=== PATIENT | female | born 1990 | race African-American/Black ===

== ENCOUNTER 2020-10-30 13:25 | Emergency (ER) | payer BC, OTHER, SELFPAY ==
[2020-10-30 13:32] VITALS: BP 151/92; PULSE 97; RESP 16; TEMP 36.9; O2SAT 100
[2020-10-30 14:15] LABS: Basophils Percent Auto 0.4 % (0.2-1.2); Eosinophils Absolute Auto 0.2 K/mm3 (0-0.3); Immature Granulocyte Absolute 0.02 K/mm3 (0.00-0.031); Immature Granulocyte Percent A 0.4 % (0-0.5); Lymphocytes Absolute Auto 2.41 K/mm3 (0.9-3.2); Lymphocytes Percent Auto 42.6 % (18.3-44.2); Mean Corpuscular HGB Conc 32.3 g/dl (32-36); Mean Corpuscular Hemoglobin 27.5 pg (26-34); Mean Corpuscular Volume 85.4 fl (80-100); Mean Platelet Volume 11.6 fl (7.4-10.4); Monocytes Absolute Auto 0.5 K/mm3 (0.1-0.6); Monocytes Percent Auto 8.5 % (2.6-8.5); Neutrophils Absolute Auto 2.6 K/mm3 (1.3-6.7); Neutrophils Percent Auto 45.1 % (45.5-73.1); Platelet Count Result 228 k/mm3 (150-375); Red Blood Count 3.63 M/mm3 (4.2-5.4); Red Cell Distribution Width 15.1 % (11.5-14.5); White Blood Count 5.7 K/mm3 (4.5-10.0)
--- NOTE | 2020-10-30 14:17 | ED.FEMALEGU ---
HPI - Female Genitourinary General Chief complaint: Vaginal Bleeding Stated complaint: vaginal bleeding Time Seen by Provider: 10/30/20 13:38 Source: patient and RN notes reviewed Mode of arrival: ambulatory Limitations: no limitations History of Present Illness HPI Narrative: This is a 30 year old female who presents for evaluation of heavy vaginal bleeding. Patient reports she gave to twins August 06 2020. She initially was only have small amount of vaginal spotting. She developed vaginal bleeding similar to regular menstrual cycle 6 days ago. Last night, she reports her bleeding became heavy and she has been passing clots. This morning she has used 8 pads since 2 am this morning and she states she used 6 pads over the past hour. She reports mild lightheadedness and lower abdominal cramping. She denies fever or chills. She is not . Related Data Allergies Allergy/AdvReac Type Severity Reaction Status Date / Time amoxicillin Allergy Rash Verified 10/30/20 13:47 tramadol Allergy Rash Verified 10/30/20 13:47 Review of Systems Review of Systems: All systems reviewed & are unremarkable except as noted in HPI and below PMFSH Past Medical History Medical History (Updated 10/30/20 @ 15:16 by Dania Hill MD) Asthma Surgical History Surgical History (Updated 10/30/20 @ 14:20 by Dania Hill MD) H/O section Social History Social History (Updated 10/30/20 @ 14:20 by Dania Hill MD) Smoking status: Never smoker Exam Const: General: no acute distress and alert Orientation/consciousness: patient oriented x3 Eyes: EOM: EOMs intact bilaterally Resp: Effort & Inspection: normal respiratory effort and no retractions Auscultation: clear to auscultation bilaterally Cardio: Rate: regular rate Rhythm: regular rhythm Heart sounds: no murmurs GI: GI Palp: Yes Soft to palpation, No Tenderness to palpation present (GI) and No Guarding due to palpation present (GI) Auscultation: normal bowel sounds : Speculum Exam - Cervix: normal appearance of the cervix and Cervical os closed Other: mild bright red blood in vaginal vault, no clots Neuro: General: patient oriented x3, moves all extremities and CN's II-XI intact bilaterally Course Reevaluation(s) Reevaluation #1: PAtient states her bleeding was manager surgical when she went to the restroom. Date: 10/30/20 Time: 14:21 Reevaluation #2: Patient states her bleeding is still minimal. I discussed hemoglobin of 10. She is not orthostatic and does not require transfusion. This appears to be start of her first menstrual cycle since her delivery. She will follow up with training and development professional as needed. Date: 10/30/20 Time: 15:10 Vital Signs Vital signs: Vital Signs Temperature 98.4 F 10/30/20 13:32 Pulse Rate 97 10/30/20 13:32 Respiratory Rate 16 10/30/20 13:32 Blood Pressure 151/92 H 10/30/20 13:32 Pulse Oximetry 100 10/30/20 13:32 Temperature 98.4 F 10/30/20 13:32 Pulse Rate 90 10/30/20 14:28 Respiratory Rate 16 10/30/20 13:32 Blood Pressure 117/91 H 10/30/20 14:28 Pulse Oximetry 100 10/30/20 13:32 MDM - Female Genitourinary Lab Data Attestation: I reviewed the patient's lab results. Result diagrams: 10/30/20 14:08 10/30/20 14:08 Labs: Lab Results 10/30/20 10/30/20 Range/Units 14:08 14:08 WBC 5.7 (4.5-10.0) K/mm3 RBC 3.63 L (4.2-5.4) M/mm3 Hgb 10.0 L (12.0-15.0) g/dL Hct 31.0 L (37.0-47.0) % MCV 85.4 (80-100) fl MCH 27.5 (26-34) pg MCHC 32.3 (32-36) g/dl RDW 15.1 H (11.5-14.5) % Plt Count 228 (150-375) k/mm3 MPV 11.6 H (7.4-10.4) fl Immature Gran % (Auto) 0.4 (0-0.5) % Neut % (Auto) 45.1 L (45.5-73.1) % Lymph % (Auto) 42.6 (18.3-44.2) % Reagan % (Auto) 8.5 (2.6-8.5) % Eos % (Auto) 3.0 (0-4.4) % Baso % (Auto) 0.4 (0.2-1.2) % Lymph # (Auto) 2.41 (0.9-3.2) K/mm3 Reagan # (Au
[2020-10-30 14:24] LABS: Alanine Aminotransferase 14 U/L (4-35); Albumin Level 3.9 g/dL (3.5-5.1); Alkaline Phosphatase 60 U/L (38-126); Anion Gap 4 mmol/L (8-16); Aspartate Amino Transferase 19 U/L (14-36); Bilirubin,Total 0.8 mg/dL (0.2-1.3); Blood Urea Nitrogen 8 mg/dL (7-17); Calcium 8.7 mg/dL (8.4-10.2); Carbon Dioxide 26 mmol/L (22-30); Chloride 110 mmol/L (98-107); Estimated CRCL calculation 124 ml/min; Estimated Glomerular Filt Rate > 60; Glucose 100 mg/dL (65-110); Potassium 3.6 mmol/L (3.4-5.0); Sodium 140 mmol/L (137-145)
[2020-10-30 14:25] VITALS: BP 111/61; PULSE 89
[2020-10-30 14:26] VITALS: BP 122/72; PULSE 92
[2020-10-30 14:28] VITALS: BP 117/91; PULSE 90
== END 2020-10-30 15:23 | disposition home or self-care (01) ==
PROVIDERS: Emergency Provider General Practice
DX: N92.1 Excessive and frequent menstruation with irregular cycle (principal); J45.909 Unspecified asthma, uncomplicated
CPT/HCPCS: 36415; 80053; 81025; 85025; 99284

== ENCOUNTER 2021-03-01 08:57 | Emergency (ER) | payer OTHER, SELFPAY ==
[2021-03-01 09:00] VITALS: BP 119/67; PULSE 65; RESP 18; TEMP 36.9
[2021-03-01] MEDS: FAMOTIDINE 20 MG TABLET PO (09:36)
--- NOTE | 2021-03-01 09:58 | ED.GENADULT ---
HPI - General Adult General Chief complaint: Allergic Reaction Stated complaint: ? allergic reaction Time Seen by Provider: 03/01/21 09:13 Source: patient Mode of arrival: ambulatory Limitations: no limitations History of Present Illness HPI narrative: Patient is a 31-year-old female with chief complaint of generalized itching that began after receiving her Covid vaccination. Patient states that she received her first Pfizer vaccination at 8:15 AM and within 15 minutes she noticed generalized itching to her neck and extremities. Patient denies swelling or itching near her face mouth or throat. Patient denies trouble breathing or swallowing or chest pain. Patient reports she took 25 mg of Benadryl and has seen improvement in her symptoms. Patient still reports some itching. Patient reports that she has had the same reaction when taking amoxicillin and tramadol. Patient denies any other concerns. Related Data Allergies Allergy/AdvReac Type Severity Reaction Status Date / Time amoxicillin Allergy Rash Verified 03/01/21 09:38 tramadol Allergy Rash Verified 03/01/21 09:38 Review of Systems Review of Systems: CONSTITUTIONAL: Denies fever, chills, or sweats. EYES: Denies visual changes, redness, or discharge. ENT: Denies rhinorrhea, congestion, sore throat, or otalgia. CARDIOVASCULAR: Denies chest pain, palpitations, or edema. RESPIRATORY: Denies cough or dyspnea. GASTROINTESTINAL: Denies abdominal pain, nausea, vomiting, or diarrhea. GENITOURINARY: Denies dysuria or hematuria. SKIN: Reports rash and itching. MUSCULOSKELETAL: Denies back pain, joint pain, or myalgia. NEUROLOGIC: Denies headache, numbness, dizziness, or weakness. PSYCHIATRIC: Denies anxiety or depression. PMFSH Past Medical History Medical History (Updated 03/01/21 @ 10:03 by Jatin Joe PA-C) Asthma Surgical History Surgical History (Updated 10/30/20 @ 14:20 by Dania Hill MD) H/O section Social History Social History (Updated 10/30/20 @ 14:20 by Dania Hill MD) Smoking status: Never smoker Exam Narrative: GENERAL: Well-appearing, well-nourished, and in no acute distress. HEAD: Normocephalic, atraumatic. EYES: PERRLA and EOMI. ENT: Nares clear, no rhinorrhea or epistaxis. Mucous membranes moist. Oropharynx without tonsillar hypertrophy exudate or other lesions. Bilateral TMs pearly loja nonbulging. Airway patent without rashes, swelling or erythema. NECK: Supple. No adenopathy or masses. Range of motion intact. No rashes appreciated. Patient seen scratching. CHEST: Clear to auscultation. No respiratory distress. No wheezes rales or rhonchi HEART: Regular rate and rhythm. No murmur heard. Normal peripheral pulses. EXTREMITIES: Normal range of motion. No edema. SKIN: Warm, dry, no rash appreciated. Patient seen scratching her upper extremities. NEURO: No focal deficits. Alert and oriented x3. PSYCH: Normal mood and affect. Course Vital Signs Vital signs: Vital Signs Temperature 98.4 F 03/01/21 09:00 Pulse Rate 65 03/01/21 09:00 Respiratory Rate 18 03/01/21 09:00 Blood Pressure 119/67 03/01/21 09:00 Temperature 98.4 F 03/01/21 09:00 Pulse Rate 65 03/01/21 09:00 Respiratory Rate 18 03/01/21 09:00 Blood Pressure 119/67 03/01/21 09:00 Medical Decision Making MDM Narrative Medical decision making narrative: Patient does not have any airway compromise. Patient has noted improvement in her symptoms with the 25 mg of Benadryl. Patient will receive Pepcid. Avoiding steroids as patient has not been having any progressive symptoms or involvement of her face mouth or throat. There is no rash appreciated at this time. Patient was for 1-1/2 hours and has only had continued improvement in her symptoms. Patient does not have any facial mouth or throat involvement. Patient will be discharged home with antihistamines and histamine blockers. Patient given hydroxyzine for itching. Shahab
[2021-03-01 10:40] VITALS: BP 112/91; PULSE 71; RESP 16; O2SAT 100
== END 2021-03-01 10:40 | disposition home or self-care (01) ==
PROVIDERS: Emergency Provider Emergency Medicine
DX: L29.8 Other pruritus (principal); T50.B95A Adverse effect of other viral vaccines, initial encounter; J45.909 Unspecified asthma, uncomplicated
CPT/HCPCS: 99283; A9270

== ENCOUNTER 2024-12-02 09:37 | Emergency (ER) | payer OTHER, SELFPAY ==
[2024-12-02 09:42] VITALS: BP 102/88; PULSE 100; RESP 20; TEMP 37.2; O2SAT 98
[2024-12-02 09:50] VITALS: O2SAT 100
--- OUTSIDE RECORDS SUMMARY | 2024-12-02 09:55 | XMS_ITS | Clinical Summary ---
Author Organization [facility] Address [address] [place] [id number] Phone Care Team Providers Care Oxygen Equipment Aide Name Role Phone Mary Ellen Gaviria MD Unavailable No, Physician Primary Care Provider [phone] Allergies Active Allergy Reactions Criticality Noted Date Comments Amoxicillin Hives Medium 01/27/2020 Latex Rash Medium 07/10/2016 Tramadol Hives Medium 01/27/2020 Medications ferrous sulfate 325 mg (65 mg of elemental iron) tabletIndicatio ns:Iron Deficiency Anemia Take 1 tablet (325 mg total) by mouth 2 (two) times a day with meals 60 tablet 2 1 Active Additional Information Patient not taking.Reported on 10/01/2020 oxyCODONE (ROXICODONE) 5 mg immediate release tabletIndicatio ns:Pain Take 1 tablet (5 mg total) by mouth every 4 (four) hours as needed for pain 20 tablet 1 Active Additional Information Patient not taking.Reported on 10/01/2020 acetaminophen (TYLENOL) 32 mg/mLIndication s:Pain Take 31.2 mL (1,000 mg total) by mouth every 6 (six) hours as needed for pain 473 mL 1 Active ibuprofen (ADVIL,MOTRIN) suspension 100 mg/5 mLIndications:P ain Take 30 mL (600 mg total) by mouth every 6 (six) hours as needed for pain 473 mL 2 1 Active polyethylene glycol (MIRALAX) 17 gram packetIndicatio ns:constipation Take 1 packet (17 g total) by mouth daily as needed for constipation 30 packet 1 1 Active Additional Information Patient not taking.Reported on 10/01/2020 NIFEdipine (NIFEdipine CC) 60 mg 24 hr tablet Take 1 tablet (60 mg total) by mouth daily 30 tablet 1 1 Active potassium chloride ER (potassium chloride ER) 10 mEq CR tablet Take 20 mEq by mouth 2 (two) times a day 1 Active naproxen (NAPROSYN) 500 mg tablet Take 1 tablet (500 mg total) by mouth 2 (two) times a day with meals 30 tablet 2 Active Additional Information Patient not taking.Reported on 05/30/2023 lidocaine (ASPERCREME) 4 % adhesive patch,medicated Place 1 patch on the skin daily Place 1 patch on the skin for 12 hours, then remove for 12 hours. 10 patch 2 Active Additional Information Patient not taking.Reported on 05/30/2023 Active Problems Problem Noted Date Diagnosed Date H/O section 08/06/2020 Overview (08/06/2020): 1. Scheduled repeat : Admit to L&D. Consents signed and placed in chart. Send CBC/T&S. To the OR once CBC/T&S/COVID have resulted. 2. FWB: Continuous monitoring. Reactive NST 3. ID: HIV negative. GBS positive, will start ancef during procedure. Membrane Status: intact. 4. Indications for UDS: none. Verbal consent obtained for UDS: Not indicated 5. MOF: Plans to breastfeed. 6. MOC: Desires permanent sterilization, consents mature and signed on 06/07/20 (visualized in medical record) 7. Pain management: Spinal to be placed in the OR. 8. Post DVT prophylaxis: The patient has the following MAJOR risk factors none and the following MINOR risk factors BMI 30-39, delivery and multiple gestation . enoxaparin 40 mg daily will be ordered for VTE prophylaxis . 9. COVID Test Status: Test sent on admission 10. MCDA TIUP: S/p LR NIPT. S/p 2x/weekly testing most recently 08/02 with no e/o TTTS or TAPS. MCA dopplers WNL x2. 14.8% growth discordance. 11. Hx CSx1: For malpositioned twins in G2 . Given Crow desires repeat. 12. Hx demise: One twin of G2 in infancy at 1 month of age. No structural defects. 13. Anemia: S/p Iron transfusion and on PO iron. Hgb 9.8 on 07/08. 14. SCT: Declines FOB testing. care following delivery 07/16 Overview (08/10/2020): # ID: Afebrile. No signs/symptoms of infection. COVID-19 negative. # Heme: EBL 850 mL. Hemodynamically stable. Preop Hgb 8.6, postop day 1 Hgb 8.4. MARKUS continue ferrous sulfate # CV/Pulm: Gestational hypertension - Blood pressures mainly NT most recently, although mild range throughout the day on no medications. Asymptomatic, denies BLANC/RUQ pain/vision changes. CBC wnl, Cr nl, LFTs pending, UPC not obtained. Consented for remote BP montioring. - enrollment confirmed # GI/: Tolerating PO. Voiding spontaneously. # Pain: controlled. Reviewed importance of combined pain management strategy Incision w/o signs of infection. CBC ordered (08/09) - wnl # Post DVT prophylaxis: The patient has the following MAJOR risk factors none and the following MINOR risk factors BMI 30-39 and delivery. enoxaparin 40 mg daily to be ordered for VTE prophylaxis. # MOC: s/p BTL # MOF: Formula feeding # Disposition: Desires discharge home today. Anemia affecting in third trimester Overview (07/12/2020): 05/18 9.2/28.7, s/p 1 iron infusion with primary. F/u iron infusion scheduled. repeat CBC- on 07/08/20, 9.8/30.2/205, ferritin 16 - discussed either PO iron or Iron infusion, prefers PO iron - sent Iron and Colace to pharmacy on 07/12 History of 02/02/2020 Overview (02/02/2020): In her last twin one baby at 1 month of age Per patient unknown cause no structural defects Monochorionic diamniotic twin gestation in secon d trimester 02/02/2020 Overview (07/26/2020): - Low risk NIPT - Growth surveillance every 4 weeks - Twin Twin Transfusion Synbdrome screening has begun at 16 weeks with plan for [id number] surveillance - TAPS surveillance at 26 weeks - LD ASA to start at 12 weeks - testing at 32 weeks - delivery at 36-37 weeks - echo wnl x2 06/21: Twin 1 MCA 1.52, unable to obtain Twin 2 06/23: Twin 1 MCA 1.58, Twin 2 MCA 1.52 (elevated x2) 06/30: Twin 1 MCA 1.29, Twin 2 MCA 1.42 (normal x2) 07/05: Twin 1 MCA 1.53, Twin 2 MCA 1.62 (normal x2) 07/12; Twin 1 MCA 1.52, Twin 2 MCA 1.56 07/26: Twin 1 MCA 1.44 (normal), Twin 2 MCA 1.57 (elevated) no evidence of TAPS or TTTS. Discussed with Dr. Caldera and will continue with 2x/weekly testing and delivery as scheduled. Work up for Parvo, toxo, CMV normal x 2 Plan to continue weekly MCAs with BPPs and 1x/weekly NSTs with f/u in 1 week. Strict FKC precautions reviewed. Supervision of high-risk , unspecified trimester 01/30/2020 Overview (07/29/2020): [x] Full MFM Care; [] Red Team [x] Blue Team, pt requests full KELLY Referring Provider: Mary Ellen Gaviria [phone] [] or Medicare Insurance [x] Dating Criteria: [place] 01/27/20 [place]IT[place] 08/30/20 [x] Labs: Rh [O+], Ab [negative], Rubella [immune], HIV [non-reactive], HepBSAg [non-reactive], RPR [non-reactive], GC/CT [negative/negative] [x] Genetic Screening: panorama low risk 02/22 [x] CBC/Hgb 11.5/33.2/plt 273 [x] UCx: 01/13/20 contaminated [x] Pap: pending. [x] LD ASA (if indicated) starting at 12 weeks: discussed on 02/01 [x] early 1 hour- 135 on 04/19, 3 hour ordered by primary [] PNBHS referral (if indicated) 2nd Tri Labs: [x] Anatomy ultrasound: complete and wnl [x] CBC/ 3hr gtt with primary on 05/18: 3 hour gtt: 87/156/133/116, CBC: 9.2/28.7/230 iron infusion per primary OB on 05/25/20 and 06/01/20 [] Flu Shot (Dec-Mar): pt declined, s/p counseling [x] Tdap (27-36wks): 3rd Tri Labs: [x] CBC/HIV/RPR: CBC 9.8/30.2/205, HIV: neg, RPR: NR [x] GBS: positive, pt aware via my chart message [x] COVID testing:requested on 07/12, to be done at [place], letter to pt via [facility] [] Hibiclens: Needs at 36 week visit Counselling [x] MOD: Desires rCS- Pt is scheduled for csection on 08/06 at 1330 [address]] [address] of delivery: [facility] [x] MOC: desires BTL, counseled and consents signed 06/07/2020 [x] Method of feeding: Breast [x] Telephone Recorder: [x] PP Depression Discussed: Sickle cell trait 01/27/2020 Overview (07/26/2020): Pt carries the trait. Pt states father of baby does not. Declines genetic testing [] Should have trimesterly urine cultures- sent today History of section 01/27/2020 Overview (06/07/2020): For malpresentation twins in G2 Desires repeat + BTL Counseled and papers signed 06/07/2020 History of gestational hypertension 01/27/2020 Overview (04/12/2020): GHTN or Pre-e ASA for preeclampsia prophylaxis. Resolved Problems Problem Noted Date Diagnosed Date Resolved Date Excessive growth affec ting management of in second trimester 05/17/2020 021 Overview (05/17/2020): Twin 2 remains LGA Continue serial growths Stressed the importance of her 3 hour gtt, pt states she will have performed tomorrow Immunizations Immunization Administration Dates Next Due Tdap 06/07/2020 Surgical History Surgery Date Site/Laterality Comments SECTION Medical History Medical History Date Comments Asthma Hypertension GHTN? Family History Medical History Relation Name Comments No Known Problems Father Diabetes Mother Diabetes Sister Hypertension Sister Breast cancer Neg Hx Ovarian cancer Neg Hx Uterine cancer Neg Hx Relation Name Status Comments Father Alive Mother Sister Social History Tobacco Use Types Packs/Day Years Used Date Smoking Tobacco: Former Cigarettes Q uit: 12/2019 Smokeless Tobacco: Never Alcohol Use Standard Drinks/Week Comments Not Currently 0 (1 standard drink = 0.6 oz pur e alcohol) Strum Depression Scale Answer Date Recorded Strum Depression Scale Total 6 10/01/2020 The thought of harming myself has occurred to me . Never 10/01/2020 Personal Safety Answer Date Recorded Have you ever been in or are you currently in a harmful physical or emotional relationship or is someone making you feel afraid or unsafe? 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 Gender Identity Female 07/06/2020 3:58 AM CDT Sexual Orientation Choose not to disclose 2020 3:58 AM CDT Obstetrics History Para Term AB IAB SAB Ectopic Multiple Livin g Live Births 3 3 2 1 2 4 5 Date Outcome GA Total Labor Labor/2nd/3rd Weight Sex Type Anes PTL Rhea A1 A5 Name Clin 2014 Term 40w 0d 3.884 kg (8 lb 9 oz) M Vag-S pont None N Livin g Complications:Gestational hy pertension Delivery Location:[facility] 2016 Term 38w 0d 3.345 kg (7 lb 6 oz) M CS-LT ranv Genera l N Livin g Complications:Pre eclampsia, Gestational hypertension Delivery Location:[place] 2016 Term 38w 0d 3.317 kg (7 lb 5 oz) M CS-LT ranv Genera l N Zulay Harrison Complications:Pre eclampsia, Gestational hypertension Delivery Location:[place] 2020 36w 4d 0h 03m 0h 03m 2.38 kg (5 lb 4 oz) F CS-LT ranv Spinal N Livin g 7 8 NOHEMY AVINA Roxane Marie, MD Complications:None Delivery Location:[facility] Main C ampus ([facility] L AND D PROCEDURE) 2020 36w 4d 0h 02m 0h 02m 2.94 kg (6 lb 7.7 oz) F CS-LT ranv Spinal N Livin g 8 8 BERNARDINO AVINA Roxane Marie, MD Complications:None Delivery Location:[facility] Main C ampus ([facility] L AND D PROCEDURE) Last Filed Vital Signs Vital Sign Reading Time Taken Comments Blood Pressure 110/70 05/30/2023 12:09 PM MARINE PAINTER Pulse 70 05/30/2023 12:09 PM MARINE PAINTER Temperature 36 C (96.8 F) 05/30/2023 12:09 PM MARINE PAINTER Respiratory Rate 18 05/30/2023 12:09 PM MARINE PAINTER Oxygen Saturation 99% 05/30/2023 12:09 PM MARINE PAINTER Inhaled Oxygen Concentration - - Weight 88 kg (194 lb) 05/30/2023 12:09 PM MARINE PAINTER Height 165.1 cm (5' 5) 05/30/2023 12:09 PM MARINE PAINTER Body Mass Index 32.28 05/30/2023 12:09 PM MARINE PAINTER Plan of Treatment Health Maintenance Due Date Last Done Comments Cervical Cancer Screening 1989 Varicella Vaccines (2 of 2 - 2-dose childhood series) 07/22/1999 04/29/1999 Regular Well Visit/Exam 18-64 2007 Pneumococcal vaccine <65 (1 of 2 - PCV) 02/06/2008 HPV Vaccines (1 - 3-dose SCD M series) 02/06/2016 Depression Screening 10/01/2021 10/01/2020 Influenza Vaccine (#1) 2024 DTaP/Tdap/Td Vaccine (9 - Td or Tdap) 06/07/2030 06/07/2020, 10/02/2016, 11/17/2014, Additional history exists Hepatitis B Screening Completed 04/29/2003 , 04/29/1999, 01/28/1998, Additional history exists Hepatitis C Screening Completed 01/27/2020 Procedures Procedure Name Priority Date/Time Associated Diagnosis Comments HEPATITIS C ANTIBODY Routine 01/27/2020 2:35 PM CDT Monochorionic diamniotic twin , antepartum from Last 3 Months or Most Recently Relevant to Health Maintenance Results * Hepatitis C antibody (01/27/2020 2:35 PM CDT) Hep C Ab NONREACT NONREACTIVE [facility] Comment: Siemens KeTechaurXP using JAISON (chemiluminescent immunoassay) technology. NONREACTIVE: Antibodies to Hepatitis C not detected. This does not exclude early acute Hepatitis C infection, possibility of exposure to Hepatitis C, antibodies below detection limit, or to lack of antibody reactivity to the antigen used in this assay. EQUIVOCAL: Antibodies to Hepatitis C may or may not be present. Sample to be confirmed by real-time PCR method. REACTIVE: Antibodies to Hepatitis C detected.Sample to be confirmed by real-time PCR method. Blood specimen (specimen) 01/27/2020 2:35 PM CDT 01/27/2020 3:20 PM CDT Narrative Resulting Agency Comment CLI Mary [facility] MICROBIOLOGY - GENE RAL ORDERABLES Final Result [facility] [address] [place] [address], [facility] [phone] from Last 3 Months or Most Recently Relevant to Health Maintenance Insurance [employer] [facility] BLUE ACCESS [place] ID[place] IDPA IDPA Advance Directives For more information, please contact: [phone] * Full Code (Latest Code Status on File) Date Activated Date Inactivated Comments 08/06/2020 3:05 PM 08/10/2020 7:57 PM * Full Code Date Activated Date Inactivated Comments 08/06/2020 11:38 AM 08/06/2020 3:05 PM Full CPR in case of cardiopulmonary arrest Care Teams Oxygen Equipment Aide Relationship Specialty Start Date End Date No, Physician PCP - General 10/12/22 Mary Ellen Gaviria MD Consulting Physician Obstetrics and Gynecology 01/30/20
--- NOTE | 2024-12-02 10:19 | ED_ITS ---
HPI - URI/Sore Throat General Chief Complaint: Upper Respiratory Infection Stated Complaint: body aches, ST Time Seen by Provider: 12/02/24 09:41 Source: patient Mode of arrival: ambulatory Limitations: no limitations History of Present Illness HPI Narrative: This is a 34-year-old female that presents to the emergency department for cold symptoms. Present since yesterday. Reports sore throat, otalgia, myalgias. Denies fevers. Related Data Allergies Allergy/AdvReac Type Severity Reaction Status Date / Time amoxicillin Allergy Rash Verified 12/02/24 09:47 tramadol Allergy Rash Verified 12/02/24 09:47 Review of Systems Review of Systems: All systems reviewed & are unremarkable except as noted in HPI and below PMFSH Past Medical History Medical History (Updated 12/02/24 @ 10:56 by Tiffany Hooks PA-C) Asthma Surgical History Surgical History (Updated 10/30/20 @ 14:20 by Dania Hill MD) H/O section Social History Social History (Updated 10/30/20 @ 14:20 by Dania Hill MD) Smoking status: Never smoker Exam Narrative: GENERAL: Well-appearing, well-nourished, and in no acute distress. HEAD: Normocephalic, atraumatic. EYES: EOMI. ENT: Nares clear, no rhinorrhea or epistaxis. Mucous membranes moist. Oropharynx with symmetric tonsillar hypertrophy with exudates, no other lesions. No trismus. Uvula midline. Bilateral TMs pearly loja non-bulging NECK: Supple. No adenopathy or masses. CHEST: Clear to auscultation. No respiratory distress. No wheezes rales or rhonchi HEART: Regular rate and rhythm. No murmur heard. Normal peripheral pulses. EXTREMITIES: Normal range of motion. No edema. SKIN: Warm, dry, no rash. NEURO: No focal deficits. Alert and oriented x3. PSYCH: Normal mood and affect Course Vital Signs Vital signs: Vital Signs Temperature 99 F 12/02/24 09:42 Pulse Rate 100 12/02/24 09:42 Respiratory Rate 20 12/02/24 09:42 Blood Pressure 102/88 12/02/24 09:42 Pulse Oximetry 98 12/02/24 09:42 Oxygen Delivery Room Air 12/02/24 09:42 Temperature 99 F 12/02/24 09:42 Pulse Rate 86 12/02/24 10:55 Respiratory Rate 16 12/02/24 10:55 Blood Pressure 123/67 12/02/24 10:55 Pulse Oximetry 99 12/02/24 10:55 Oxygen Delivery Room Air 12/02/24 09:50 MDM - URI/Sore Throat MDM Narrative Medical decision making narrative: Patient presents the emergency department for sore throat, myalgias. She is afebrile and nontoxic appearing. No evidence for [employer] CHAINSTITCH on exam. Will be started on oral antibiotics. She is to follow up with primary provider. She was given warnings to return to the ER Differential Diagnosis Differential diagnosis: Likely upper respiratory infection, viral infection and pharyngitis Lab Data Attestation: I reviewed the patient's lab results. Labs: Lab Results 12/02/24 Range/Units 09:52 Group A Strep (PCR) Detected A (Negative) Critical Care Time Critical Care Time Critical Care Time: No Discharge Plan Discharge Clinical Impression: Strep pharyngitis Patient Disposition: Home Condition: Stable Instructions: Antibiotic Form, Strep Throat (ED) Additional Instructions: Return to the emergency department for worsening symptoms, or any other concerns Remain well-hydrated, get plenty of rest. Take Tylenol or Motrin [id number] for pain as needed. Take oral antibiotic as prescribed. Follow up with your primary care doctor Patient Language: Slovak Prescriptions: New cefdinir 300 mg capsule 300 mg PO Q12H 7 Days Qty: 14 0RF No Action cetirizine [Zyrtec] 10 mg tablet 10 mg PO DAILY Qty: 10 0RF famotidine [Pepcid] 20 mg tablet 20 mg PO BID Qty: 20 0RF hydroxyzine HCl 25 mg tablet 25 mg PO TID PRN (Reason: itching) Qty: 10 0RF Follow-up/Referrals: UNKNOWN,DOCTOR [Primary Care Provider] Tanja Cruz MD [Physician, Family Practice]
--- OUTSIDE RECORDS SUMMARY | 2024-12-02 10:29 | XMS_ITS | Clinical Summary ---
Author Organization [facility] Virtual Care Address [address] [place] [id number] Phone Care Team Providers Care Damage Prevention Coordinator Name Role Phone Mary Ellen Gaviria MD Unavailable No, Physician Primary Care Provider [phone] Allergies Active Allergy Reactions Criticality Noted Date [...] begun at 16 weeks with plan for [id number] surveillance - TAPS surveillance at 26 weeks [...] full KELLY Referring Provider: Mary Ellen Gaviria [phone] [] or Medicare Insurance [x] Dating Criteria: [...] testing:requested on 07/12, to be done at [place], letter to pt via [employer] [] Hibiclens: Needs at 36 week visit Counselling [x] MOD: Desires rCS- Pt is scheduled for csection on 08/06 at 13[address] [[address]] [address] of delivery: [facility] [x] MOC: desires BTL, counseled and consents signed 06/07/2020 [x] Method of feeding: Breast [x] Laundry Housekeeping Aide: [x] PP Depression Discussed: Sickle cell trait [...] drink = 0.6 oz pur e alcohol) Nye Depression Scale Answer Date Recorded Nye Depression Scale Total 6 10/01/2020 The thought [...] on file Legal Sex Female 8:38 PM PATIENT ADMITTING CLERK Gender Identity Female 07/06/2020 3:58 AM CDT [...] Livin g Complications:Gestational hy pertension Delivery Location:This [facility] 2016 Term 38w 0d 3.345 kg (7 lb 6 oz) M CS-LT ranv Genera l N Livin g Complications:Pre eclampsia, Gestational hypertension Delivery Location:[place] 2016 Term 38w 0d 3.317 kg (7 lb 5 oz) M CS-LT ranv Genera l N Zulay Harrison Complications:Pre eclampsia, Gestational hypertension Delivery Location:[place] 2020 36w 4d 0h 03m 0h 03m 2.38 kg (5 lb 4 oz) F CS-LT ranv Spinal N Livin g 7 8 NOHEMY AVINA Roxane Marie, MD Complications:None Delivery Location:[facility] Main C ampus ([facility] L AND D PROCEDURE) 2020 36w 4d 0h 02m 0h 02m 2.94 kg (6 lb 7.7 oz) F CS-LT ranv Spinal N Livin g 8 8 BERNARDINO AVINA Roxane Marie, MD Complications:None Delivery Location:[facility] Main C ampus ([facility] L AND D PROCEDURE) Last Filed Vital Signs Vital Sign Reading Time Taken Comments Blood Pressure 110/70 05/30/2023 12:09 PM PATIENT ADMITTING CLERK Pulse 70 05/30/2023 12:09 PM PATIENT ADMITTING CLERK Temperature 36 C (96.8 F) 05/30/2023 12:09 PM PATIENT ADMITTING CLERK Respiratory Rate 18 05/30/2023 12:09 PM PATIENT ADMITTING CLERK Oxygen Saturation 99% 05/30/2023 12:09 PM PATIENT ADMITTING CLERK Inhaled Oxygen Concentration - - Weight 88 kg (194 lb) 05/30/2023 12:09 PM PATIENT ADMITTING CLERK Height 165.1 cm (5' 5) 05/30/2023 12:09 PM PATIENT ADMITTING CLERK Body Mass Index 32.28 05/30/2023 12:09 PM PATIENT ADMITTING CLERK Plan of Treatment Health Maintenance Due Date [...] PM CDT) Hep C Ab NONREACT NONREACTIVE [facility] Comment: [employer] [id number] using JAISON (chemiluminescent immunoassay) technology. NONREACTIVE: Antibodies [...] MICROBIOLOGY - GENE RAL ORDERABLES Final Result [facility] [address] [place] [address], [facility] [phone] from Last 3 Months or Most Recently Relevant to Health Maintenance Insurance [employer] [facility] BLUE [place]ESS [place] IDPA IDPA Advance Directives For more information, please contact: [phone] * Full Code (Latest Code Status on File) Date Activated Date Inactivated Comments 08/06/2020 3:05 PM 08/10/2020 7:57 PM * Full Code Date Activated Date Inactivated Comments 08/06/2020 11:38 AM 08/06/2020 3:05 PM Full CPR in case of cardiopulmonary arrest Care Teams Damage Prevention Coordinator Relationship Specialty Start Date End Date No, Physician PCP - General 10/12/22 Mary Ellen Gaviria MD Consulting Physician Obstetrics and Gynecology 01/30/20
[2024-12-02 10:50] LABS: Strep Group A RT-PCR DETECTED (Negative)
[2024-12-02] MEDS: KETOROLAC 30 MG/ML VIAL (*BKC) IM (10:54)
[2024-12-02 10:55] VITALS: BP 123/67; PULSE 86; RESP 16; O2SAT 99
[2024-12-02 11:02] LABS: Influenza A QL RT-PCR Negative (Negative); Influenza B QL RT-PCR Negative (Negative); RSV RNA, RT-PCR Negative (Negative); SARS-CoV-2 RNA PCR Negative (Negative)
[2024-12-02] MEDS: CEFDINIR 300 MG CAPSULE PO (11:48)
[2024-12-02 12:22] VITALS: BP 109/66; PULSE 78; RESP 12; TEMP 36.8; O2SAT 100
== END 2024-12-02 12:23 | disposition home or self-care (01) ==
PROVIDERS: Emergency Provider Physician Assistant
DX: J02.0 Streptococcal pharyngitis (principal); J45.909 Unspecified asthma, uncomplicated
CPT/HCPCS: 87637; 87651; 96372; 99283; A9270; J1885